=== PATIENT | male | born 1985 | race Caucasian/White ===

== ENCOUNTER 2019-10-22 08:20 | Emergency (ER) | payer BC, SELFPAY ==
[2019-10-22 08:21] VITALS: BP 124/92; PULSE 74; RESP 16; TEMP 36.8; O2SAT 98; BMI 24.3
--- NOTE | 2019-10-22 08:27 | HMH.EDGENADL ---
ED Disposition Clinical Impression: Eyebrow laceration Qualifiers: Encounter type: initial encounter Laterality: right Qualified Code(s): S01.111A - Laceration without foreign body of right eyelid and periocular area, initial encounter Disposition: Home, Self-Care Condition on Discharge: Good Instructions: DI for Laceration Repair, DI for Closed Head Injury Additional Instructions: Additional instructions for FACIAL LACERATION: Clean the wound daily with soap and water. You may shower. Apply a thin film of antibiotic ointment such as neosporin or triple antibiotic after showering. Avoid submerging the wound, no swimming. See your primary care physician or return to the [facility] in 5 days for suture removal. The [facility] is open 9 AM to 9 PM 7 days a week. Return if any signs of infection including increasing pain, pus drainage, swelling, redness, red streaks, or fever. Additional instructions for HEAD INJURY: See your physician as soon as possible for further evaluation. Return immediately if severe headache, vomiting, problems with vision or speech, numbness or weakness of the extremities, or severe neck pain. Referrals: Sabino Lopez MD [Primary Care Provider] - - Critical Care Critical Care Time: No Attestation: On , the high probability of a clinically significant, sudden or life threatening deterioration of the following system(s) required my full and direct attention, intervention and personal management. The time I documented below is in addition to time spent performing reported procedures but includes the following listed in this critical care notation. Medical Decision Making - Eulalio Inquiry Pt receiving controlled substance: No Vital Signs: 10/22/19 08:21 10/22/19 09:03 Temperature 98.2 F Temperature Source Oral Pulse Rate [Right Brachial] 74 79 Respiratory Rate 16 Blood Pressure [Right Arm] 124/92 H 113/75 Blood Pressure Mean [Right Arm] 102 87 Blood Pressure Source [Right Arm] Automatic Cuff Automatic Cuff Blood Pressure Position [Right Arm] Sitting Sitting 02 Sat by Pulse Oximetry 98 97 Oxygen Delivery Method Room Air Room Air Orders (Tests/Meds): ED MEDICATIONS Generic Name Dose Route Start Last Admin Trade Name Freq PRN Reason Stop Dose Admin Neomycin/Polymyxin/Bacitracin 1 each 10/22/19 09:12 Neosporin Ointment 0.9gm Udp TP 10/22/19 09:13 ONCE ONE Discontinued Medications Generic Name Dose Route Start Last Admin Trade Name Freq PRN Reason Stop Dose Admin Lidocaine/Epinephrine 10 ml 10/22/19 08:30 10/22/19 08:35 Lidocaine 2% W/Epi 1:100,000 20ml Vial IJ 10/22/19 08:31 1 ml ONCE ONE Administration Tetanus/Reduced Diphtheria/Acell Pertussis 0.5 ml 10/22/19 08:30 10/22/19 08:35 Adacel Tdap 0.5ml Syringe IM 10/22/19 08:31 0.5 ml .ONCE ONE Administration - CT Data CT Scan: Head, C-Spine Time Received: 09:[address] Reviewed: Yes: I have viewed the radiologist's interpretation Findings Narrative: PROCEDURE: CT CERVICAL SPINE WO CON CLINICAL INDICATION: hit in head by cow COMPARISON: No exams were available for comparison TECHNIQUE: Axial images obtained with sagittal and coronal reformats. All CT scans at the facility use one or more dose reduction, viz: automated exposure control, ma/kV adjustment per patient size (including targeted exams where dose is matched to indication, i.e. head), or iterative reconstruction technique. Axial spiral CT scanning performed of the cervical spine beginning at the base of the skull and continuing to the upper T-spine. 3-D multiplanar reconstruction with 3-D manipulation of volumetric data set in image rendering was completed by the radiologist and/or technologist with the supervision of the radiologist on independent workstation. FINDINGS: No fracture nor subluxation is evident. There is normal curvature and alignment. 1 Normal prevertebral
--- NOTE | 2019-10-22 08:30 | CT_ITS ---
PROCEDURE: CT HEAD/BRAIN WO CON CLINICAL INDICATION: Kicked in head by cow COMPARISON: No exams were available for comparison TECHNIQUE: Axial images obtained. All CT scans at the facility use one or more dose reduction, viz: automated exposure control, ma/kV adjustment per patient size (including targeted exams where dose is matched to indication, i.e. head), or iterative reconstruction technique. FINDINGS: No midline shift, mass effect, intracranial hemorrhage, hydrocephalus, or extra-axial fluid collection is evident. The calvarium has an unremarkable appearance. No mastoid effusion. No sinus air-fluid level. IMPRESSION: No acute intracranial finding Dictated by: Dr. Henrik Handley MD 10/22/2019 08:[address] Henrik Handley MD in [place] 10/22/2019 08:55
--- NOTE | 2019-10-22 08:30 | CT_ITS ---
PROCEDURE: CT CERVICAL SPINE WO CON CLINICAL INDICATION: hit in head by cow COMPARISON: No exams were available for comparison TECHNIQUE: Axial images obtained with sagittal and coronal reformats. All CT scans at the facility use one or more dose reduction, viz: automated exposure control, ma/kV adjustment per patient size (including targeted exams where dose is matched to indication, i.e. head), or iterative reconstruction technique. Axial spiral CT scanning performed of the cervical spine beginning at the base of the skull and continuing to the upper T-spine. 3-D multiplanar reconstruction with 3-D manipulation of volumetric data set in image rendering was completed by the radiologist and/or technologist with the supervision of the radiologist on independent workstation. FINDINGS: No fracture nor subluxation is evident. There is normal curvature and alignment. 1 Normal prevertebral soft tissues. Facets, neural foramen and vertebral bodies intact and unremarkable. Normal C1/C2 relationships. Apices of lungs are clear with no acute findings. IMPRESSION: Cervical spine intact with no fracture nor subluxation. Dictated by: Dr. Henrik Handley MD 10/22/2019 08:[address] Henrik Handley MD in [place] 10/22/2019 08:56
--- NOTE | 2019-10-22 08:31 | PC.NURSE ---
Rad aware of orders.
--- NOTE | 2019-10-22 08:36 | PC.NURSE ---
Pt to rad via w/c
[2019-10-22 09:03] VITALS: BP 113/75; PULSE 79; O2SAT 97
[2019-10-22 09:16] VITALS: BP 113/69; PULSE 78; RESP 16; TEMP 36.8; O2SAT 98
== END 2019-10-22 09:32 | disposition home or self-care (01) ==
PROVIDERS: Emergency Provider Emergency Medicine; PCP Internal Medicine Adolescent Medicine
DX: S01.111A Laceration without foreign body of right eyelid and periocular area, initial encounter (principal); W55.22XA Struck by cow, initial encounter; Y92.71 Barn as the place of occurrence of the external cause; Z23 Encounter for immunization; F17.210 Nicotine dependence, cigarettes, uncomplicated
CPT/HCPCS: 12013; 70450; 72125; 90471; 90715; 99283

== ENCOUNTER 2022-06-15 17:47 | Emergency (ER) | payer BC, SELFPAY ==
[2022-06-15 17:50] VITALS: BP 137/86; PULSE 86; RESP 20; TEMP 37.2; O2SAT 100; BMI 27.4
[2022-06-15 18:15] LABS: UTC Strep Screen (Rapid) Negative (Negative)
--- NOTE | 2022-06-15 18:16 | EXP.UTC ---
Discharge Plan Disposition Patient Disposition: Home, Self-Care Condition: Good Prescriptions Prescriptions: New loratadine 10 mg tablet 10 mg PO DAILY Qty: 30 0RF No Action cefdinir 300 mg capsule 300 mg PO Q12H 10 Days Qty: 20 0RF prednisone 20 mg tablet 20 mg PO BID Qty: 10 0RF Rx Instructions: administer with food or milk Referrals Follow up/Referrals: Sabino Lopez MD [Primary Care Provider] - See instructions Clinical Impressions Clinical Impression: Upper respiratory tract infection Instructions Patient Instructions: DI for Viral Upper Respiratory Infection -- Adult Discharge ED Provider: Merle Scott [facility] – [place] HPI General Stated complaint: sore throat,GAMBINO Body Aches Mode of Arrival: Ambulatory Source of Information: Patient Limitations: No Limitations Time Seen by Provider: 06/15/22 18:15 Description of Symptoms (Recalled from Triage Doc. by RN): sore throat, body ache HEENT Symptoms (Recalled from RN notes): Yes Resp Symptoms (Recalled from RN notes): No Skin Symptoms (Recalled from RN notes): No MS Symptoms (Recalled from RN notes): No Functional Status (Recalled from RN notes): n/a History of Present Illness Provider Complaint: Pt states that he has had a low grade fever, body aches, clear nasal drainage, and an occasional cough. 3 of his 4 kids has had strep. He has taken Tylenol for his symptoms. Related Data Previous Rx's Medication Instructions Recorded cefdinir 300 mg capsule 300 mg PO Q12H 10 days #20 caps 03/18/21 prednisone 20 mg tablet 20 mg PO BID #10 tabs 03/18/21 loratadine 10 mg tablet 10 mg PO DAILY #30 tabs 06/15/22 Allergies Allergy/AdvReac Type Severity Reaction Status Date / Time gentamicin Allergy Unknown Verified 03/22/21 18:55 Worker's Comp Is this a Worker's Comp case?: No [facility] Disclaimer: The information contained in this section may have been updated after the patient was seen, as this information can be updated by other users. Social History Smoking Status: Current every day smoker tobacco type: cigarettes packs per day: 1 alcohol intake: never current occupational status: employed Travel in the last 8 weeks: None household members: family housing: house ROS Obtained: Yes All systems reviewed & no additional complaints except as documented Constitutional Constitutional: Reports system reviewed and no additional complaints, except as documented, Reports body ache, Reports chills, Reports fatigue, Reports fever(s) and Reports malaise Eyes Eyes: Reports system reviewed and no additional complaints, except as documented ENT Ears, Nose, Mouth, and Throat: Reports odynophagia, Reports post nasal drip and Reports sore throat Cardiovascular Cardiovascular: Reports system reviewed and no additional complaints, except as documented Respiratory Respiratory: Reports system reviewed and no additional complaints, except as documented and Reports cough Gastrointestinal Gastrointestingal: Reports system reviewed and no additional complaints, except as documented, diarrhea and odynophagia Genitourinary Male Genitourinary: Reports system reviewed and no additional complaints, except as documented Musculoskeletal Musculoskeletal: Reports system reviewed and no additional complaints, except as documented and Reports myalgias Integumentary/Breasts Skin/Breast: Reports system reviewed and no additional complaints, except as documented Neurologic Neurologic: Reports system reviewed and no additional complaints, except as documented Endocrine Endocrine: Reports system reviewed and no additional complaints, except as documented and Reports fatigue Hematologic/Lymphatic Henatologic/Lymphatic: Reports system reviewed and no additional complaints, except as documented Allergic/Immunologic Allergic/Immunologic: Reports system reviewed and no additional complaints, except as documented Physical Exam General General appearance: alert and
[2022-06-15 18:43] VITALS: BP 137/86; PULSE 86; RESP 20; TEMP 37.2; O2SAT 100
== END 2022-06-15 18:43 | disposition home or self-care (01) ==
PROVIDERS: Emergency Provider Nurse Practitioner Family; PCP Internal Medicine Adolescent Medicine
DX: J06.9 Acute upper respiratory infection, unspecified (principal)
CPT/HCPCS: 87880; 99212; 99213; C9803; G0463; U0003; U0005

== ENCOUNTER → 2022-08-19 16:06 | Outpatient (CLI) | payer SELFPAY | PROVIDERS: PCP Internal Medicine Adolescent Medicine; Visit Provider Nurse Practitioner Family | DX: Z02.4 Encounter for examination for driving license (principal) ==

== ENCOUNTER 2024-01-01 17:46 | Emergency (ER) | payer BC, SELFPAY ==
--- NOTE | 2024-01-01 18:04 | ED_ITS ---
Discharge Plan Disposition Patient Disposition: Home, Self-Care Condition: Good Prescriptions Prescriptions: New azithromycin [Zithromax] 250 mg tablet 250 mg PO UD DOSE PK Qty: 6 0RF Rx Instructions: Take two (2) tablets today, then one (1) tablet days #2 thru #5 [id number] [Bromfed DM] 2-30-10 mg/5 mL Syrup 5 ml PO Q6H PRN (Reason: Cough) Qty: 240 0RF methylprednisolone 4 mg Tablets,Dose Pack 4 mg PO DIRECTED 6 Days Qty: 21 0RF Rx Instructions: Take 1 pack as directed for 6 days No Action benzonatate 100 mg capsule 100 mg PO TID PRN (Reason: cough) Qty: 30 0RF amoxicillin 500 mg tablet 500 mg PO BID 10 Days Qty: 20 0RF Referrals Follow up/Referrals: Sabino Lopez MD [Primary Care Provider] - See instructions Activity Restrictions/Add. Instructions Additional Instructions/Restrictions: Drink plenty of fluids. Take tylenol or ibuprofen for pain or fever. Stop the amoxicillin and start the azithromycin and other medications. Follow up with your regular doctor. GO TO THE ER FOR ANY WORSENING SYMPTOMS Clinical Impressions Clinical Impression: Otitis media, Sinusitis, Acute viral syndrome Instructions Patient Instructions: Sinusitis, DI for Sinusitis, Methylprednisolone, Azithromycin Print Language Print Language: Nepali Discharge ED Provider: Barrington Carrillo [facility] [place] HPI General Stated complaint: ear pain Time Seen by Provider: 01/01/24 18:04 Related Data Previous Rx's ?Medication ?Instructions ?Recorded amoxicillin 500 mg tablet 500 mg PO BID 10 days #20 tabs 12/26/23 benzonatate 100 mg capsule 100 mg PO TID PRN cough #30 caps 12/26/23 azithromycin 250 mg tablet 250 mg PO UD DOSE PK #6 tabs 01/01/24 (Zithromax) [id number]-[id number]-OY 5 ml PO Q6H PRN Cough #240 mL 01/01/24 2 mg-30 mg-10 mg/5 mL oral syrup (Bromfed DM) methylprednisolone 4 mg tablets in 4 mg PO DIRECTED 6 days #21 tabs 01/01/24 a dose pack Allergies Allergy/AdvReac Type Severity Reaction Status Date / Time gentamicin Allergy Unknown Verified 12/26/23 08:27 [facility] Disclaimer: The information contained in this section may have been updated after the patient was seen, as this information can be updated by other users. Social History Smoking Status: Current every day smoker tobacco type: cigarettes packs per day: 1 alcohol intake: never current occupational status: employed Travel in the last 8 weeks: None household members: family housing: house ROS Obtained: Yes All systems reviewed & no additional complaints except as documented Constitutional Constitutional: Reports chills and Reports fever(s) Eyes Eyes: Denies eye discharge ENT Ears, Nose, Mouth, and Throat: Reports as per HPI Cardiovascular Cardiovascular: Denies chest pain Respiratory Respiratory: Denies chest congestion and Reports cough Gastrointestinal Gastrointestingal: Reports nausea; Denies abdominal pain, constipation, cramping, diarrhea or vomiting Musculoskeletal Musculoskeletal: Denies arthralgias Integumentary/Breasts Skin/Breast: Denies rash Neurologic Neurologic: Denies paresthesias Physical Exam General General appearance: alert and in no apparent distress Eye Eye exam: Present normal appearance, PERRL and EOMI ENT ENT exam: Present mucous membranes moist and normal external ear exam Expanded ENT Exam External ear exam: Present normal external inspection TM/Canal exam: Bilateral TM: erythema and bulging Nose exam: Absent sinus tenderness Nasal speculum exam: Bilateral: normal Mouth exam: Present normal external inspection; Absent drooling Teeth exam: Present normal inspection Throat exam: Present tonsillar erythema and tonsillomegaly Neck Neck exam: Present normal inspection, full ROM and trachea midline; Absent tenderness, lymphadenopathy or thyromegaly Chest Chest inspection: Present normal inspection and symmetric chest wall rise; Absent tenderness or rash Respiratory Respiratory exam: Present normal lung sounds bilaterally; Absent respiratory distress, wheezes, stridor or accessory muscle use Cardiovascular Cardiovascular exam: Present regular rate, normal rhythm and normal heart sounds Abdominal Exam Abdominal exam: Present soft; Absent distention, tenderness, guarding, rebound or rigidity Extremities Exam Extremities exam: Present normal inspection, full ROM and normal capillary refill; Absent tenderness or calf tenderness Back Exam Back exam: Present normal inspection and full ROM; Absent tenderness Neurological Exam Neurological exam: Present alert and oriented X3 Psychiatric Psychiatric exam: Present normal affect and normal mood Skin Skin exam: Present warm, dry, intact and normal color Lymphatic Lymphatic Findings: no adenopathy Medical Decision Making Medical Records Medical records reviewed: No I reviewed the patient's medical records. Eulalio Inquiry Pt receiving controlled substance: No Medical Decision Narrative: He refused any covid-19 or viral testing
[2024-01-01 18:10] VITALS: BP 109/74; PULSE 66; RESP 16; TEMP 36.6; O2SAT 100; BMI 24.3
[2024-01-01 18:56] VITALS: BP 109/74; PULSE 66; RESP 16; TEMP 36.6; O2SAT 100
== END 2024-01-01 18:57 | disposition home or self-care (01) ==
PROVIDERS: Emergency Provider Nurse Practitioner Family; PCP Internal Medicine Adolescent Medicine
DX: H66.93 Otitis media, unspecified, bilateral (principal); J01.90 Acute sinusitis, unspecified; B34.9 Viral infection, unspecified
CPT/HCPCS: 99212; 99214; G0463